=== PATIENT | female | born 1945 | race Caucasian/White ===

== ENCOUNTER → 2016-10-02 18:48 | Outpatient (CLI) | payer MEDICARE, OTHER ==
[2015-08-14 11:06] VITALS: BMI 37.8
[~2016-10-02 18:48] MED LIST: HYDROCHLOROTHIA25 MG PO; K-DUR20 MEQ PO; LISINOPRIL5 MG PO; TOPROL XL100 MG; TOPROL XL50 MG PO; XARELTO20 MG PO
[2016-10-02 19:21] LABS: T4 THYROXIN - FREE 1.01 ng/dL (0.76-1.46); T4 THYROXINE 6.2 ug/dL (4.7-13.3); THYROID STIMULATING HORMONE 1.17 uIU/mL (0.36-3.74)
== END | disposition home or self-care (01) ==
LOC: D.LABREF 18:48
PROVIDERS: Internal Medicine Cardiovascular Disease
DX: I48.91 Unspecified atrial fibrillation (principal)

== ENCOUNTER → 2018-10-24 13:58 | Outpatient (CLI) | payer MEDICARE, OTHER ==
[2015-08-14 11:06] VITALS: BMI 37.8
== END | disposition home or self-care (01) ==
LOC: D.RAD 13:58
PROVIDERS: ATTEND Family Medicine
DX: M25.551 Pain in right hip (principal); M25.561 Pain in right knee

== ENCOUNTER → 2018-11-23 12:46 | Outpatient (CLI) | payer MEDICARE, OTHER ==
[2015-08-14 11:06] VITALS: BMI 37.8
--- NOTE | ~2018-11-23 | HEMODYNAMI ---
PATIENT:ASIF CABRERA MEDICAL RECORD: [id number] : 41 LOCATION:SUDHIR ADMISSION DATE: 11/23/18 Generatedon:11/23/201813:35 Patient name: ASIF CABRERA Patient #: [id number] SSN: : 1945 Date of study: 11/23/2018 Page: Of Hemodynamic Procedure Report Patient Data Patient Demographics Procedure consent was obtained First Name: ASIF Gender: Female Last Name: RICK : 1945 Patient #: [id number] Age: 73 year(s) Race: Unknown Additional ID: [id number] Contact details Address: [address] [place] [address] State: [place] City: [place] Zip code: [address] Past Medical History Allergies: No known allergies Admission Admission Data Admission Date: 11/23/2018 Admission Time: 12:46 Procedure Procedure Types Cath Procedure Peripheral Cath Diagnostic Procedure Miscellaneous Aspiration/Injection (Joint) Procedure Description Procedure Date Procedure Date: 11/23/2018 Procedure Start Time: 13:27 Procedure Staff Name Function Paul Carbajal MD Performing Physician Naif Herbert RT Monitor Procedure Data Cath Procedure Fluoroscopy Diagnostic fluoroscopy Total fluoroscopy Time: 0.2 time: 0.2 min min Diagnostic fluoroscopy Total fluoroscopy dose: 4 dose: 4 mGy mGy Contrast Material Contrast Material Type Amount (ml) Isovue 300 5 Hemodynamics Rest Pre Cath Intra NCS Post Cath Procedure Log Time Note 13:22:59 Naif Herbert RT (R) (CV) sent for patient. Start room use. 13:23:13 Patient received from Outpatients to IR Alert and oriented. Tansferred to table in Supine position. 13:23:18 Signed procedure consent form obtained from patient. 13:23:20 Full Disclosure recording started 13:23:21 Pre-procedure instructions explained to patient. 13:23:22 Pre-op teaching completed and patient verbalized understanding. 13:23:35 Patient allergic to No known allergies 13:23:38 Is patient on blood thinner?No 13:24:00 Right Hip was prepped with betadine and draped in sterile fashion. 13:26:21 Physician arrived 13::21 --------ALL STOP TIME OUT------ 13::22 Final Timeout: patient, procedure, and site verified with staff and physician. All members of the team are in agreement. 13:26:25 Right groin site verified by team. 13:26:30 Sedation plan: Local Anesthetic Medication:Lidocaine 13:26:54 Procedure started. 13:27:00 Local anesthetic to right hip with Lidocaine 1% by Paul Carbajal MD.INITIAL ACCESS ONLY 13:27:18 SAFE-T PLUS MYELOGRAM TRAY opened to sterile field. 13:33:37 Procedure ended.(Physican Out) 13:34:11 Fluoroscopy time 00.20 minutes. 13:34:13 Fluoroscopy dose: 4 mGy 13:34:13 Flurop Dose total: 4 13:34:22 Contrast amount:Isovue 200m 5ml. 13:35:13 BANDAIDE APPLIED SITE STABLE PT SENT HOME Device Usage Item Name Manufacture Quantity Catalog Hospital Part Current Minimal Lot# / Number Charge Number Stock Stock Serial# Code SAFE-T Care[employer]usion 1 [id number] PLUS MYELOGRAM TRAY Signature Audit [place] Stage Time Signature Unsigned Intra-Procedure 11/23/2018 Naif 1:35:42 PM Keon RT (R) (CV) Signatures Monitor : Naif Signature : Keon RT Date : Time : [address] [address]
== END | disposition home or self-care (01) ==
LOC: D.OPS 12:46
PROVIDERS: ATTEND Nurse Practitioner Family
DX: M25.551 Pain in right hip (principal); Z01.812 Encounter for preprocedural laboratory examination

== ENCOUNTER → 2020-07-18 18:13 | Outpatient (CLI) | payer MEDICARE, OTHER ==
[2015-08-14 11:06] VITALS: BMI 37.8
== END | disposition home or self-care (01) ==
LOC: D.LABREF 18:13
PROVIDERS: ATTEND Orthopaedic Surgery
DX: M16.11 Unilateral primary osteoarthritis, right hip (principal)

== ENCOUNTER 2020-07-22 13:00 | Inpatient (IN) | payer MEDICARE, OTHER ==
[~2020-07-22] VITALS: Ht 160 cm; Wt 110.7 kg
[2020-08-20] MEDS ORDERED: POTASSIUM CHLO20 MEQ PO (11:02)
[2020-08-20] MEDS ORDERED: XARELTO20 MG PO (11:02)
[2020-08-20] MEDS ORDERED: METOPROLOL TART50 MG PO (11:02)
[2020-08-20] MEDS ORDERED: GABAPENTIN100 MG PO (11:03)
[2020-08-20] MEDS ORDERED: BAYER ASPIRIN325 MG PO (11:03)
[2020-08-20] MEDS ORDERED: ULTRAM50 MG PO (11:03)
[2020-08-21 13:37] LABS: BASOPHILS 0.3 % (0-2); EOSINOPHILS 0.2 % (0-7); HEMATOCRIT 41.6 % (36.0-48.0); HEMOGLOBIN 13.5 g/dL (12-16); IMMATURE GRANULOCYTES 0.3 % (0-5); LYMPHOCYTE ABS# 0.73 10x3/uL (1.18-3.74); LYMPHOCYTES 11.2 % (15-50); MCH 31.2 pg (26.0-34.0); MCHC 32.5 g/dL (31.0-37.0); MCV 96.1 fL (80.0-100.0); MEAN PLATELET VOLUME 11.5 fL (7.4-10.4); NEUTROPHIL ABS# 5.21 10x3/uL (1.56-6.13); PLATELET COUNT 166 10x3/uL (130-400); RBC 4.33 10x6/uL (4.00-5.40); RDW 14.2 % (11.5-14.5); WBC 6.5 10x3/uL (4.8-10.8)
[2020-08-21 13:45] LABS: ANION GAP 10.1 mmol/L (8-16); CALCIUM 9.3 mg/dL (8.5-10.1); CARBON DIOXIDE 29.7 mmol/L (21.0-32.0); CREATININE - SERUM 0.9 mg/dL (0.6-1.3); POTASSIUM - SERUM 4.8 mmol/L (3.5-5.1)
[2020-08-21 13:50] LABS: APTT 36.8 SECONDS (22.8-39.4); INR 1.69 (0.85-1.17); PROTIME 18.4 SECONDS (11.6-15.0)
[2020-08-23 11:01] LABS: BACTERIA RARE HPF (NONE SEEN); BILIRUBIN NEGATIVE (NEGATIVE); KETONE NEGATIVE (NEGATIVE); NITRITE NEGATIVE (NEGATIVE); SQUAMOUS EPITHELIAL 0-5 HPF (0-4); UROBILINOGEN 12 mg/dL (< 2); WHITE CELLS - URINE 0-5 HPF (0-4)
[2020-08-27] VITALS (13 sets, daily range): BP systolic 85–126; BP diastolic 43–73; BMI 42.6; BMI 43.3
--- NOTE | 2020-08-27 07:02 | NUR ---
CAUTERY PAD PLACED ON LEFT THIGH. PLASMA BLADE USED ON SETTING 6/8. AQUAMANTYS USED ON SETTING 170. CAUTERY PAD LOT# [id number] EXP. 12/31/2021
[2020-08-27 07:59] LABS: APTT 30.5 SECONDS (22.8-39.4); INR 1.23 (0.85-1.17); PROTIME 14.4 SECONDS (11.6-15.0)
--- NOTE | 2020-08-27 11:06 | NUR ---
PING BLOCK. PT DENIES PAIN AT THIS TIME
[2020-08-27 13:43] LABS: BASOPHILS 0 % (0-2); EOSINOPHILS 0 % (0-7); HEMOGLOBIN 12.3 g/dL (12-16); IMMATURE GRANULOCYTES 0.5 % (0-5); LYMPHOCYTE ABS# 0.65 10x3/uL (1.18-3.74); LYMPHOCYTES 7.1 % (15-50); MCH 31.5 pg (26.0-34.0); MCHC 33.2 g/dL (31.0-37.0); MCV 94.9 fL (80.0-100.0); MEAN PLATELET VOLUME 11.2 fL (7.4-10.4); MONOCYTES 3.3 % (2-11); NEUTROPHIL ABS# 8.15 10x3/uL (1.56-6.13); NEUTROPHILS 89.1 % (40-80); PLATELET COUNT 186 10x3/uL (130-400); RDW 13.7 % (11.5-14.5); WBC 9.2 10x3/uL (4.8-10.8)
[2020-08-27 13:59] LABS: ALBUMIN 3.3 g/dL (3.4-5.0); ANION GAP 12.8 mmol/L (8-16); BILIRUBIN - TOTAL 0.73 mg/dL (0.2-1.3); CALCIUM 8.6 mg/dL (8.5-10.1); CARBON DIOXIDE 26.6 mmol/L (21.0-32.0); POTASSIUM - SERUM 4.4 mmol/L (3.5-5.1); PROTEIN - SERUM 6.2 g/dL (6.4-8.2)
--- NOTE | 2020-08-27 16:01 | OP ---
PATIENT NAME: ASIF CABRERA MEDICAL RECORD: [id number] :41 LOCATION:D. D.1206 ADMISSION DATE:08/27/20 SURGEON: PAUL IBANEZ DO DATE OF OPERATION: 08/27/2020 PROCEDURE PERFORMED: Right total hip arthroplasty. PREOPERATIVE DIAGNOSIS: Right hip osteoarthritis. POSTOPERATIVE DIAGNOSIS: Right hip osteoarthritis. INDICATIONS: Ms. Lee is a 74-year-old female who has had right hip pain for years. It has gotten to the point where she could barely ambulate. She had a very severe osteoarthritis and was worrying the acetabulum and the femoral head was worn down almost complete on the superior aspect. I informed to her the risks of this including infection, damage to the femoral nerve, bleeding, need for blood transfusion, blood clots, fracture, failure of implants, need for further surgery, continued pain, loss of motion of the hip, blood clots and even and she signed the consent. SURGEON: Paul Ibanez DO DESCRIPTION OF PROCEDURE: The patient was taken to the operative suite, given the GURINDER block, sedated and intubated, laid in supine position, given 2 grams of Ancef, 80 mg of gentamicin, but no TXA due to her being on Xarelto. She was then moved to the [place] table position, the right hip was prepped and draped in sterile fashion. Timeout was performed, everyone was in agreeance with the e correct side, site, patient and procedure. I then began by marking out the incision as best I could as it was very hard to find landmarks due to her body habitus, I proceeded to prep and drape and time-out was performed. I marked out the incision and then cut down through the skin, made careful dissection down to the tensor fascia gerry muscle, took the fascia anteriorly and the muscle belly posteriorly, and then the rectus medially, opened up the rectus interval, took the rectus medially and the tensor fascia gerry laterally, coagulating any bleeders. The ascending branch of lateral femoral circumflex were coagulated with the Aquamantys. I then cut to the capsule, put Hohmann's around the capsule and opened up the capsule and tagged it and put Homans' intracapsularly. I then got an x-ray to make sure it cut proper place. I then made the neck cut and removed the head. The bone was very soft on the posterior femur, but I did get the head removed. I then put in the Charnley and coagulating any bleeding at that time, removed the labrum and pulvinar. I reamed up to a 52, impacted 52 osteotome and cup in. Due to a soft bone I did put a 25-mm screw in the posterior superior quadrant and put it impacting the liner. Once the liner was in a good position on the x-ray, I ensured that the cup was solid and it was with a hemostat. I then exposed the femur and then put in the canal finder and cookie cutter. I then broached up to a 13 and tried a 14, 14 was too big, 13 went in. I trialed the -6 neck, it fit very well and was equal length to the left on AP pelvis. I then removed that and irrigated thoroughly and then impacted a 13 stem and put in a -6 dual-mobility head. I then reduced it. We did x-rays in the femoral stem to make sure there were no fractures around it. We did not see any with internal and external, and then sized it and it was equal length to the left side on AP pelvis. I then irrigated with 10% povidone-iodine and 500 mL of normal saline solution, let it sit for few minutes, irrigated out with a liter of normal saline. I then put in Shakir and vancomycin-tobramycin powder. Then Tate Roman, certified surgical first aid nurse OPERATIVE REPORT [id number] ASIF CABRERA closed the tensor fascia gerry fascia with #1 Vicryl in a [id number] and then a running locking stitch and then on top of that right in the skin at the apex of the incision due to her body habitus, we put a Kerecis patch to help the wound heal there where her pannus would fold over on it. He then closed the skin with 2-0 Vicryl in inverted interrupted fashion, ran 4-0 Monocryl on the skin and put on a Prevena Plus. She was then awakened and taken to recovery in stable condition. Blood loss was approximately 300 mL. COMPLICATIONS: None. TRANSINT:[id number] Voice Confirmation ID: [id number] DOCUMENT ID: [id number] PAUL IBANEZ DO at 1601 CC: [id number] DICTATION DATE: 08/27/20 1046 BLUE LEATHER SORTER: 08/27/20 1501 ADM IN [facility] [address] [place] [id number]
--- NOTE | 2020-08-27 18:37 | MORECARE ---
CASE MANAGEMENT DISCHARGE SUMMARY PATIENT: ASIF CABRERA UNIT: [id number] ADM DATE: 08/27/20 AGE: 74 : 43 SEX: F ROOM/BED: D.1206 AUTHOR: JENIFER HARDING PHYSICIAN: REFERRING PHYSICIAN: BRUCE IBANEZ DO DATE OF SERVICE: 08/27/20 Case Management Discharge Planning Summary COMMENTS ENTERED DATE: 08/27/20 18:35 CT COMMENT TYPE: Discharge Planning REVIEWER: Dominguez Ordoñez CM met with patient to complete DC plan and to evaluate needs. Patient lives alone with strong support. Patient identified her son, Héctor Lee, , as person to notify. Patient stated that her home is safe and has electricity and running water. Patient stated that the home has 6 steps to enter and she is able to manage the steps but with difficulty. Patient further stated that her home has multiple levels and she is concerned for her safety going up and down stairs in her home. Patient stated that she has no problems paying for medications and she fills her medications at [facility]. Patient stated that her primary care physician is Dr. Lazar. CM discussed availability of home health, rehab services, and medical equipment. Patient declined HHS, SNF, and DME. Patient would like Inpatient rehab services with [facility]. Patient reiterated that she would feel safer in inpatient rehab for a week or two before going home. Patient stated that she would like to speak with Dr. Ibanez regarding best plan. Patient stated that she may be able to get help at home but would like to strengthen in inpatient rehab before going home. LEONILA signed and placed in chart. Patient stated she has a walker at home. Patient voiced no other needs at this time and is satisfied with DC plan. DC IMM delivered, explained, signed by the patient, and placed in chart. Signed form also left with the patient. CM will continue to follow and will assist as needed with dc plans/needs. DCP REVIEW SUMMARY ANTICIPATED D/C DATE: EXPECTED LOS : CASE STATUS: DCP Initiated INITIAL REVIEW: 08/27/2020 INITIAL REVIEWER: Dominguez Ordoñez FINAL DISCHARGE DISPOSITION: : FINAL REVIEWER: FINAL REVIEW DATE: DCP Focus Questions & Answers DCP Evaluation QUESTION: ANSWER Patient gives permission to discuss discharge plans with: (name, relationship and number) : sonHéctor, Patient's ability to cope with chronic illness : d. No chronic illness Patient's current cognitive status: : *Oriented to person, place, situation, time and present Family / Caregiver's ability to cope with chronic illness: : a. Adequate (ability to meet patient's medical needs, ensures patient attends medical appts.) Patient and/or caregiver agree upon recommended discharge plan? : Yes Physical Status: : Independent with ADL's Family / Caregiver's ability to cope with chronic illness: : a. Adequate (ability to meet patient's medical needs, ensures patient attends medical appts.) Functional screen assessment: : Basic needs can adequately be met by self Does the patient have the ability to pay for or attain post discharge needs / services? : Yes Living Arrangements: : Home Alone with Support Is there a likelihood that the patient will require additional services to return to the preadmission environment? : Yes Equipment needed for post hospitalization: : None Baseline cognitive status: : *Oriented to person, place, situation, time and present Patient with capacity for self-care or can be cared for in same environment as prior to hospitalization? : Yes Physical environment modification needed / anticipated for discharge: : No Medication Management: : Patient states can afford medications Medication Management: : Patient states can read and understand medication labels [facility] Does Patient have transportation to get home and to follow-up medical appointments when discharged from the hospital? : Yes Would patient like to participate in any Care Coordination programs (if applicable): : Not applicable Does the patient have electricity at home? : Yes Does the patient have running water in their house? : Yes Equipment in use: : Walker - Rolling Mental health screen: : No mental health history DCP Re-evaluation QUESTION: ANSWER Would patient like to participate in any Care Coordination programs (if applicable): : Not applicable PATIENT: ASIF CABRERA ENCOUNTER: [id number] MEDICAL RECORD#: [id number] ADMISSION DATE: 08/27/2020 DISCHARGE DATE: ATTENDING MD: BRUCE ARANDA : AGE: 74 MARITAL STATUS: W DC PLAN ID: [id number] FACILITY: [facility] PRINTED ON: 08/27/20 18:37 CT All edits/amendments must be made on the electronic document DICTATION DATE: 08/27/201836 GROUND CONTROL APPROACH TECHNICIAN: MELODY 08/27/201836 RPT#: [id number] DC DATE: STATUS: ADM IN [facility] [address] [place] [address] END OF REPORT
--- NOTE | 2020-08-27 20:00 | NUR ---
ALERT SITTING UP IN BED, DENIES PAIN OR NEEDS AT THIS TIME, SEE SHIFT ASSESSMENT, CALL LIGHT IN REACH
[2020-08-28] VITALS: BP 96/60
[2020-08-28 05:43] LABS: BASOPHILS 0 % (0-2); EOSINOPHILS 0 % (0-7); HEMATOCRIT 32.8 % (36.0-48.0); HEMOGLOBIN 10.8 g/dL (12-16); IMMATURE GRANULOCYTES 0.3 % (0-5); LYMPHOCYTES 11.4 % (15-50); MCH 30.9 pg (26.0-34.0); MCHC 32.9 g/dL (31.0-37.0); MEAN PLATELET VOLUME 11.5 fL (7.4-10.4); MONOCYTES 11.1 % (2-11); NEUTROPHIL ABS# 7.43 10x3/uL (1.56-6.13); NEUTROPHILS 77.2 % (40-80); PLATELET COUNT 203 10x3/uL (130-400); RBC 3.49 10x6/uL (4.00-5.40); RDW 13.7 % (11.5-14.5); WBC 9.6 10x3/uL (4.8-10.8)
[2020-08-28 05:53] LABS: ALBUMIN 2.8 g/dL (3.4-5.0); ANION GAP 10.1 mmol/L (8-16); BILIRUBIN - TOTAL 0.53 mg/dL (0.2-1.3); CALCIUM 8.6 mg/dL (8.5-10.1); CARBON DIOXIDE 27.5 mmol/L (21.0-32.0); CREATININE - SERUM 0.8 mg/dL (0.6-1.3); POTASSIUM - SERUM 4.6 mmol/L (3.5-5.1); PROTEIN - SERUM 5.8 g/dL (6.4-8.2)
--- NOTE | 2020-08-28 08:45 | NUR ---
PT SITTING UP IN BED WATCHING TV. RESP EVEN AND UNLABORED. DENIES PAIN AT THIS TIME. SALINE LOC TO LEFT HAND, SITE WITHOUT REDNESS OR EDEMA. PREVENA DRESSING TO RIGHT HIP. PT DENIES FURTHER NEEDS AT THIS TIME. AM MEDICATIONS ADMINISTERED AT THIS TIME. TOPROL XL HELD THIS AM PER PT REQUEST DUE TO BP OF 122/50. CL WITHIN REACH. ENCOURAGED TO CALL WITH NEEDS. CONTINUE POC
[2020-08-28 09:40] VITALS: BP 122/50
[2020-08-28 12:00] VITALS: BP 103/53
[2020-08-28 15:03] VITALS: Ht 160 cm; Wt 110.7 kg
[2020-08-28 20:00] VITALS: BP 115/61
--- NOTE | 2020-08-28 20:00 | NUR ---
ALERT RESTING IN BED, DENIES PAIN OR NEEDS AT THIS TIME, SEE SHIFT ASSESSMENT, CALL LIGHT IN REACH
[2020-08-29 05:00] VITALS: BP 102/52
[2020-08-29 07:24] VITALS: BP 142/95
[2020-08-29 07:36] LABS: BASOPHILS 0.1 % (0-2); EOSINOPHILS 0.1 % (0-7); HEMATOCRIT 33.6 % (36.0-48.0); HEMOGLOBIN 10.9 g/dL (12-16); IMMATURE GRANULOCYTES 0.7 % (0-5); LYMPHOCYTE ABS# 1.05 10x3/uL (1.18-3.74); LYMPHOCYTES 13.9 % (15-50); MCH 30.9 pg (26.0-34.0); MCHC 32.4 g/dL (31.0-37.0); MCV 95.2 fL (80.0-100.0); MEAN PLATELET VOLUME 11.4 fL (7.4-10.4); MONOCYTES 15.7 % (2-11); NEUTROPHIL ABS# 5.25 10x3/uL (1.56-6.13); NEUTROPHILS 69.5 % (40-80); PLATELET COUNT 201 10x3/uL (130-400); RBC 3.53 10x6/uL (4.00-5.40); RDW 13.9 % (11.5-14.5); WBC 7.6 10x3/uL (4.8-10.8)
[2020-08-29] MEDS ORDERED: HYDROCODON-ACE1 EA10 PO (07:47)
[2020-08-29 08:00] LABS: ALBUMIN 2.9 g/dL (3.4-5.0); ANION GAP 13.6 mmol/L (8-16); CALCIUM 8.8 mg/dL (8.5-10.1); CARBON DIOXIDE 26.9 mmol/L (21.0-32.0); CREATININE - SERUM 0.8 mg/dL (0.6-1.3); POTASSIUM - SERUM 4.5 mmol/L (3.5-5.1); PROTEIN - SERUM 5.9 g/dL (6.4-8.2)
--- NOTE | 2020-08-29 08:01 | NUR ---
PT AWAKE ALERT AND ORIENTED. SCD'S, JEREMIAH'S, AND NON SKID SOCKS ON. STATES THERE IS SOMETHING PINCHING HER RIGHT LOWER LEG/ANKLE/FOOT. IT WAS FOUND TO BE A TEMPORARY PULSE OX THAT I REMOVED. WITH REARRANGING OF JEREMIAH HOSE. SHE STATED IT WAS BETTER AND NOTHING PINCHING NOW. NO FURTHER NEEDS AT THIS TIME. VS STABLE. CL IN REACH. WCTM
[2020-08-29 10:58] VITALS: BP 100/51
--- NOTE | 2020-08-29 11:45 | NUR ---
FAMILY IN ROOM. NO NEEDS AT THIS TIME. CL IN REACH. PT IN CHAIR. WCTM
--- NOTE | 2020-08-29 14:29 | MORECARE ---
CASE MANAGEMENT DISCHARGE SUMMARY PATIENT: ASIF CABRERA UNIT: [id number] ADM DATE: 08/27/20 AGE: 74 : 43 SEX: F ROOM/BED: D.1206 AUTHOR: JENIFER HARDING PHYSICIAN: REFERRING PHYSICIAN: BRUCE IBANEZ DO DATE OF SERVICE: 08/29/20 Case Management Discharge Planning Summary COMMENTS ENTERED DATE: 08/27/20 18:35 CT COMMENT TYPE: Discharge Planning REVIEWER: Dominguez Ordoñez CM met with patient to complete DC plan and to evaluate needs. Patient lives alone with strong support. Patient identified her son, Héctor Lee, , as person to notify. Patient stated that her home is safe and has electricity and running water. Patient stated that the home has 6 steps to enter and she is able to manage the steps but with difficulty. Patient further stated that her home has multiple levels and she is concerned for her safety going up and down stairs in her home. Patient stated that she has no problems paying for medications and she fills her medications at [facility]. Patient stated that her primary care physician is Dr. Lazar. CM discussed availability of home health, rehab services, and medical equipment. Patient declined HHS, SNF, and DME. Patient would like Inpatient rehab services with [facility]. Patient reiterated that she would feel safer in inpatient rehab for a week or two before going home. Patient stated that she would like to speak with Dr. Ibanez regarding best plan. Patient stated that she may be able to get help at home but would like to strengthen in inpatient rehab before going home. LEONILA signed and placed in chart. Patient stated she has a walker at home. Patient voiced no other needs at this time and is satisfied with DC plan. DC IMM delivered, explained, signed by the patient, and placed in chart. Signed form also left with the patient. CM will continue to follow and will assist as needed with dc plans/needs. DCP REVIEW SUMMARY ANTICIPATED D/C DATE: EXPECTED LOS : CASE STATUS: DCP Initiated INITIAL REVIEW: 08/27/2020 INITIAL REVIEWER: Dominguez Ordoñez FINAL DISCHARGE DISPOSITION: : FINAL REVIEWER: FINAL REVIEW DATE: DCP Focus Questions & Answers DCP Evaluation QUESTION: ANSWER Patient gives permission to discuss discharge plans with: (name, relationship and number) : sonHéctor, Patient's ability to cope with chronic illness : d. No chronic illness Patient's current cognitive status: : *Oriented to person, place, situation, time and present Family / Caregiver's ability to cope with chronic illness: : a. Adequate (ability to meet patient's medical needs, ensures patient attends medical appts.) Patient and/or caregiver agree upon recommended discharge plan? : Yes Physical Status: : Independent with ADL's Family / Caregiver's ability to cope with chronic illness: : a. Adequate (ability to meet patient's medical needs, ensures patient attends medical appts.) Functional screen assessment: : Basic needs can adequately be met by self Does the patient have the ability to pay for or attain post discharge needs / services? : Yes Living Arrangements: : Home Alone with Support Is there a likelihood that the patient will require additional services to return to the preadmission environment? : Yes Equipment needed for post hospitalization: : None Baseline cognitive status: : *Oriented to person, place, situation, time and present Patient with capacity for self-care or can be cared for in same environment as prior to hospitalization? : Yes Physical environment modification needed / anticipated for discharge: : No Medication Management: : Patient states can afford medications Medication Management: : Patient states can read and understand medication labels [facility] Does Patient have transportation to get home and to follow-up medical appointments when discharged from the hospital? : Yes Would patient like to participate in any Care Coordination programs (if applicable): : Not applicable Does the patient have electricity at home? : Yes Does the patient have running water in their house? : Yes Equipment in use: : Walker - Rolling Mental health screen: : No mental health history DCP Re-evaluation QUESTION: ANSWER Would patient like to participate in any Care Coordination programs (if applicable): : Not applicable PATIENT: ASIF CABRERA ENCOUNTER: [id number] MEDICAL RECORD#: [id number] ADMISSION DATE: 08/27/2020 DISCHARGE DATE: ATTENDING MD: BRUCE ARANDA : AGE: 74 MARITAL STATUS: W DC PLAN ID: [id number] FACILITY: [facility] PRINTED ON: 08/29/20 14:29 CT All edits/amendments must be made on the electronic document DICTATION DATE: 08/29/201428 ELECTRONIC CALIBRATION TECHNICIAN: MELODY 08/29/201428 RPT#: [id number] DC DATE: STATUS: ADM IN [facility] [address] [place] [address] END OF REPORT
--- NOTE | 2020-08-29 17:21 | NUR ---
IV THERAPY REMOVED FROM LEFT HAND WITH TIP INTACT. DISCHARGE INSTRUCTIONS SIGNED. PT PACKED UP AND TAKEN TO REHAB. REPORT CALLED TO MAURISIO MEJIA
--- NOTE | 2020-08-30 09:34 | MORECARE ---
CASE MANAGEMENT DISCHARGE SUMMARY PATIENT: ASIF CABRERA UNIT: [id number] ADM DATE: 08/27/20 AGE: 74 : 43 SEX: F ROOM/BED: D.1206 AUTHOR: MEAGHAN,JENIFER PHYSICIAN: REFERRING PHYSICIAN: BRUCE IBANEZ DO DATE OF SERVICE: 08/30/20 Case Management Discharge Planning Summary COMMENTS ENTERED DATE: 08/27/20 18:35 CT COMMENT TYPE: Discharge Planning REVIEWER: Dominguez Ordoñez CM met with patient to complete DC plan and to evaluate needs. Patient lives alone with strong support. Patient identified her son, Héctor Lee, , as person to notify. Patient stated that her home is safe and has electricity and running water. Patient stated that the home has 6 steps to enter and she is able to manage the steps but with difficulty. Patient further stated that her home has multiple levels and she is concerned for her safety going up and down stairs in her home. Patient stated that she has no problems paying for medications and she fills her medications at [facility]. Patient stated that her primary care physician is Dr. Lazar. CM discussed availability of home health, rehab services, and medical equipment. Patient declined HHS, SNF, and DME. Patient would like Inpatient rehab services with [facility]. Patient reiterated that she would feel safer in inpatient rehab for a week or two before going home. Patient stated that she would like to speak with Dr. Ibanez regarding best plan. Patient stated that she may be able to get help at home but would like to strengthen in inpatient rehab before going home. LEONILA signed and placed in chart. Patient stated she has a walker at home. Patient voiced no other needs at this time and is satisfied with DC plan. DC IMM delivered, explained, signed by the patient, and placed in chart. Signed form also left with the patient. CM will continue to follow and will assist as needed with dc plans/needs. DCP REVIEW SUMMARY ANTICIPATED D/C DATE: EXPECTED LOS : CASE STATUS: DCP Initiated INITIAL REVIEW: 08/27/2020 INITIAL REVIEWER: Dominguez Ordoñez FINAL DISCHARGE DISPOSITION: : FINAL REVIEWER: FINAL REVIEW DATE: DCP Focus Questions & Answers DCP Evaluation QUESTION: ANSWER Patient and/or caregiver agree upon recommended discharge plan? : Yes Family / Caregiver's ability to cope with chronic illness: : a. Adequate (ability to meet patient's medical needs, ensures patient attends medical appts.) Patient's current cognitive status: : *Oriented to person, place, situation, time and present Patient's ability to cope with chronic illness : d. No chronic illness Patient gives permission to discuss discharge plans with: (name, relationship and number) : sonHéctor, Does the patient have the ability to pay for or attain post discharge needs / services? : Yes Functional screen assessment: : Basic needs can adequately be met by self Family / Caregiver's ability to cope with chronic illness: : a. Adequate (ability to meet patient's medical needs, ensures patient attends medical appts.) Physical Status: : Independent with ADL's Equipment needed for post hospitalization: : None Is there a likelihood that the patient will require additional services to return to the preadmission environment? : Yes Living Arrangements: : Home Alone with Support Patient with capacity for self-care or can be cared for in same environment as prior to hospitalization? : Yes Baseline cognitive status: : *Oriented to person, place, situation, time and present Physical environment modification needed / anticipated for discharge: : No Medication Management: : Patient states can read and understand medication labels Medication Management: : Patient states can afford medications [facility] Does Patient have transportation to get home and to follow-up medical appointments when discharged from the hospital? : Yes Would patient like to participate in any Care Coordination programs (if applicable): : Not applicable Does the patient have electricity at home? : Yes Does the patient have running water in their house? : Yes Equipment in use: : Walker - Rolling Mental health screen: : No mental health history DCP Re-evaluation QUESTION: ANSWER Would patient like to participate in any Care Coordination programs (if applicable): : Not applicable PATIENT: ASIF CABRERA ENCOUNTER: [id number] MEDICAL RECORD#: [id number] ADMISSION DATE: 08/27/2020 DISCHARGE DATE: 08/29/2020 ATTENDING MD: BRUCE ARANDA : [id number] AGE: 74 MARITAL STATUS: W DC PLAN ID: [id number] FACILITY: [facility] PRINTED ON: 08/30/20 9:34 CT All edits/amendments must be made on the electronic document DICTATION DATE: 08/30/20933 COAL SAMPLE TESTER: MELODY 08/30/20933 RPT#: [id number] DC DATE:08/29/20 STATUS: DIS IN [facility] [address] [place] [address] END OF REPORT
== END 2020-08-29 17:22 | DRG 470 ==
LOC: D.M3 08-27 06:01 → D.SDCHOLD 08-27 06:01 → D.M3 08-27 11:26
PROVIDERS: Anesthesiology; Family Medicine; ADMIT Orthopaedic Surgery; ATTEND Orthopaedic Surgery
PROC: 0SR90J9 Replacement of Right Hip Joint with Synthetic Substitute, Cemented, Open Approach (ICD-10-PCS; principal; 2020-08-27 08:00)
DX: M16.11 Unilateral primary osteoarthritis, right hip (principal); E87.1 Hypo-osmolality and hyponatremia; I10 Essential (primary) hypertension; I48.91 Unspecified atrial fibrillation; J42 Unspecified chronic bronchitis

== ENCOUNTER 2020-08-29 12:21 | Inpatient (IN) | payer MEDICARE, OTHER ==
[~2020-08-29] VITALS: Ht 160 cm; Wt 113.9 kg
[~2020-08-29 12:21] MED LIST changes: +BAYER ASPIRIN325 MG PO; +GABAPENTIN100 MG PO; +HYDROCODON-ACE1 EA10 PO; +METOPROLOL TART50 MG PO; +POTASSIUM CHLO20 MEQ PO; +ULTRAM50 MG PO
[2020-08-29 19:30] VITALS: BP 118/58
--- NOTE | 2020-08-30 02:31 | NUR ---
PT IS RESTING WITH EYES CLOSED. RESPIRATIONS EVEN AND UNLABORED. HER BED IS LOW, BED ALARM ON AND CALL LIGHT IS WITHIN REACH.
[2020-08-30 07:48] VITALS: BP 106/51
[2020-08-30 08:06] LABS: BASOPHILS 0.2 % (0-2); EOSINOPHILS 0.5 % (0-7); HEMATOCRIT 32.8 % (36.0-48.0); HEMOGLOBIN 10.7 g/dL (12-16); IMMATURE GRANULOCYTES 1.2 % (0-5); LYMPHOCYTE ABS# 1.21 10x3/uL (1.18-3.74); LYMPHOCYTES 14.8 % (15-50); MCH 30.9 pg (26.0-34.0); MCHC 32.6 g/dL (31.0-37.0); MCV 94.8 fL (80.0-100.0); MEAN PLATELET VOLUME 11.3 fL (7.4-10.4); MONOCYTES 14.3 % (2-11); NEUTROPHIL ABS# 5.65 10x3/uL (1.56-6.13); PLATELET COUNT 214 10x3/uL (130-400); RBC 3.46 10x6/uL (4.00-5.40); RDW 13.7 % (11.5-14.5); WBC 8.2 10x3/uL (4.8-10.8)
--- NOTE | 2020-08-30 08:08 | NUR ---
SHE IS WEARING HER JEREMIAH HOSE AND THE SCD'S. SHE HAS A WOUND VAC TO THE RIGHT HIP/GROIN AREA. PRN GIVEN FOR PAIN. THE CALL LIGHT IS WITHIN REACH AND THE BED ALARM IS ON.
[2020-08-30 08:31] LABS: CALC OSMOLALITY 263 mosm/kg (275-300); CALCIUM 8.2 mg/dL (8.5-10.1); CARBON DIOXIDE 26.6 mmol/L (21.0-32.0); CHLORIDE - SERUM 98 mmol/L (98-107); CREATININE - SERUM 0.6 mg/dL (0.6-1.3); GLUCOSE 104 mg/dL (74-106); POTASSIUM - SERUM 4.2 mmol/L (3.5-5.1); SODIUM 132 mmol/L (136-145); UREA NITROGEN 10 mg/dL (7-18); eGFR NON AFRICAN AMERICAN > 90 mL/min (90-120)
[2020-08-30 12:15] VITALS: Ht 160 cm; Wt 113.9 kg
--- NOTE | 2020-08-30 14:48 | NUR ---
PATIENT ADMITTS TO [facility] FOR REHABILITATION FROM ACUTE FLOOR. HER PCP IS DR. ZAMORA. DME AT HOME IS A ROLLING WALKER. DISCHARGE PLANS ARE FOR HER TO RETURN HOME. WILL CONTINUE TO FOLLOW WITH PATIENT AND WILL ASSIST WITH HER NEEDS.
[2020-08-30 19:34] VITALS: BP 107/55
--- NOTE | 2020-08-30 19:57 | NUR ---
PATIENT RECEIVED SITTING UP IN BED. ASSESSMENT & VITAL SIGNS DONE. NO C/O PAIN OR DISTRESS. BESIDE TABLE & CALL LIGHT WITHIN REACH. ALARM ON. CALL LIGHT WITHIN REACH. WILL CONTINUE TO MONITOR.
--- NOTE | 2020-08-31 01:12 | NUR ---
I have reviewed this patient and I concur with the Shift Assessment completed by the Licensed Practical Nurse today this shift.
--- NOTE | 2020-08-31 04:25 | NUR ---
PATIENT EYES CLOSED. RESPIRATIONS 18 & EVEN. WOUND VAC CONTINUES. BED LOW. ALARM ON. CALL LIGHT & BEDSIDE TABLE WITHIN REACH. WILL CONTINUE TO MONITOR.
[2020-08-31 07:00] VITALS: BP 106/73
--- NOTE | 2020-08-31 08:15 | NUR ---
SHE IS USING THE WALKER TO GET TO THE BATHROOM. SHE HAS THE WOUND VAC TO THE RIGHT HIP, IT HAS BRUISING. PRN FOR PAIN GIVEN. THE CALL LIGHT IS WITHIN REACH.
[2020-08-31 19:10] VITALS: BP 116/57
--- NOTE | 2020-08-31 19:37 | NUR ---
PATIENT RECEIVED SITTING UP IN BED. ASSESSMENT & VITAL SIGNS DONE. NO C/O PAIN OR DISTRESS. BED LOW. ALARM ON. CALL LIGHT WITHIN REACH. WILL CONTINUE TO MONITOR.
--- NOTE | 2020-09-01 00:58 | NUR ---
I have reviewed this patient and I concur with the Shift Assessment completed by the Licensed Practical Nurse today this shift.
[2020-09-01 08:00] VITALS: BP 116/61
[2020-09-01 19:00] VITALS: BP 127/72
--- NOTE | 2020-09-01 20:00 | NUR ---
PATIENT RECEIVED SITTING UP IN LOW BED. ASSESSMENT & VITAL SIGNS DONE. NO C/O PAIN OR DISTRESS. ALARM ON. CALL LIGHT WITHIN REACH. WILL CONTINUE TO MONITOR,
--- NOTE | 2020-09-02 04:05 | NUR ---
PATIENT AWAKE WATCHING TV. ASKED PATIENT IF SHE NEEDED ANYTHING. PATIENT SAID NO I'M OK. BED LOW. ALARM ON. CALL LIGHT WITHIN REACH. WILL CONTINUE TO MONITOR.
--- NOTE | 2020-09-02 08:00 | NUR ---
PT RESTING IN BED WITH EYES OPEN CALL LIGHT IN REACH WILL MONITER
[2020-09-02 08:30] VITALS: BP 102/56
[2020-09-02 09:26] LABS: BASOPHILS 0.3 % (0-2); EOSINOPHILS 1.1 % (0-7); HEMATOCRIT 30.8 % (36.0-48.0); HEMOGLOBIN 10.2 g/dL (12-16); IMMATURE GRANULOCYTES 1.5 % (0-5); LYMPHOCYTE ABS# 0.95 10x3/uL (1.18-3.74); LYMPHOCYTES 14.6 % (15-50); MCHC 33.1 g/dL (31.0-37.0); MCV 93.6 fL (80.0-100.0); MEAN PLATELET VOLUME 10.9 fL (7.4-10.4); MONOCYTES 12.2 % (2-11); NEUTROPHIL ABS# 4.56 10x3/uL (1.56-6.13); NEUTROPHILS 70.3 % (40-80); RBC 3.29 10x6/uL (4.00-5.40); RDW 13.3 % (11.5-14.5); WBC 6.5 10x3/uL (4.8-10.8)
[2020-09-02 09:28] LABS: PLATELET COUNT 282 10x3/uL (130-400)
[2020-09-02 09:39] LABS: ANION GAP 11.9 mmol/L (8-16); CALCIUM 8.6 mg/dL (8.5-10.1); CARBON DIOXIDE 27.2 mmol/L (21.0-32.0); CREATININE - SERUM 0.8 mg/dL (0.6-1.3); POTASSIUM - SERUM 4.1 mmol/L (3.5-5.1)
--- NOTE | 2020-09-02 18:35 | NUR ---
PT RESTING IN BED WITH EYES OPEN CALL LIGHT IN REACH WILL MONITER
[2020-09-02 21:25] VITALS: BP 128/69
[2020-09-03 07:46] VITALS: BP 120/53
--- NOTE | 2020-09-03 08:00 | NUR ---
PT RESTING IN BED WITH EYES OPEN CALL LIGHT IN REACH WILL MONITER
--- NOTE | 2020-09-03 18:08 | NUR ---
PT RESTING IN BED WITH EYES OPEN CALL LIGHT IN REACH NO PROBLEMS WILL MONITER
--- NOTE | 2020-09-03 19:32 | NUR ---
PT IN BED, NO IMMEDIATE NEEDS NOTED OR VERBALIZED, FLUIDS/CL WITHIN REACH, ALARMS ON AND WORKING, MAJOR ACCOUNT REPRESENTATIVE IN ROOM TAKING VITALS
[2020-09-03 20:28] VITALS: BP 119/62
--- NOTE | 2020-09-03 20:28 | RHP ---
PATIENT: ASIF CABRERA MEDICAL RECORD: [id number] ACCOUNT: [id number] LOCATION:[facility] D.[id number] : 43 ADMISSION DATE: 08/29/20 REHABILITATION HISTORY AND PHYSICAL EXAMINATION POST ADMISSION PHYSICIAN EXAMINATION ADMITTING DIAGNOSIS: Right hip osteoarthritis. HISTORY OF PRESENT ILLNESS: The patient is admitted to inpatient rehab with right hip osteoarthritis, status post right total hip arthroplasty. She is a 74-year-old female patient who had pain for years in this hip, it had gotten to the point where she could not ambulate. She had severe osteoarthritis and was worrying that the acetabulum and femoral head were worn down against her pelvis so bad that she might have to have other surgery done. She came to the hospital for right hip arthroplasty. She did well with this. The patient postop had some anemia. She is being monitored for cardiac arrhythmias and is on Toprol for atrial fib. The patient has been having physical therapy. She is supine to sit, is mod assist from the edge of the bed. She is min assist for walking up to 130 feet with a rolling walker. The patient is having some problems with steadying and assistive device. The patient needs to have cues to slow down control of breathing, she requires standing rest breaks to complete activity prior to this. She lives at home alone. She lives in a multi-story home. She has 6 steps to enter her home and 13 steps to get to her second floor. The patient has been admitted to the rehabilitation. We will monitor closely for pain control, decreased activity tolerance, decreased strength, balance deficit, decreased range of motion, gait disturbance, impaired mobility, high fall risk and self-care deficits. These are all barriers to her discharge home. Hopefully, we will get her back to her prior level of functioning. COMORBIDITIES: Include atrial fib, anemia, arthritis, cataracts, chronic AFib, decrease in physical function, difficulty walking, electrolyte imbalance, low albumin, low sodium, hypotension, morbid obesity, osteoarthritis, need for safety cues. PAST MEDICAL HISTORY: Significant for cataracts, hypertension, atrial fib, chronic bronchitis, arthritis. She is postmenopausal. She has got neuropathy. PAST SURGICAL HISTORY: Includes cataract surgery and bilateral knee replacement. ALLERGIES: No known drug allergies. CURRENT MEDICATIONS: Include Xarelto 20 mg with dinner, potassium 20 mEq daily, metoprolol 50 mg daily, hydrocodone 10/325 one tab every 4 to 6 hours p.r.n., Neurontin 100 mg b.i.d., aspirin 325 and polyethylene glycol 17 grams in 8 ounces of water daily. HABITS: No current alcohol or tobacco use. FAMILY HISTORY: Noncontributory. SOCIAL HISTORY: The patient hopes to return back home and get back to her prior level of functioning. REVIEW OF SYSTEMS: HISTORY AND PHYSICAL [id number] ASIF CABRERA GENERAL: Does complain of weakness and fatigue. HEENT: Denies cold, cough or congestion. CARDIOVASCULAR: Denies any chest pain. OBJECTIVE: VITAL SIGNS: Stable. GENERAL: A morbidly obese female in no acute distress upon exam. HEENT: Normocephalic and atraumatic. Mucosa moist. NECK: Supple. No lymphadenopathy. LUNGS: Clear in upper damon. No wheezing or rales. HEART: Regular rate and rhythm. ABDOMEN: Soft, benign, nondistended. She is noted to be obese. EXTREMITIES: Postoperative area looks pretty good. NEUROLOGIC: She does have a little bit of weakness. LABORATORY DATA: White count is 8.2, H&H of 10.7 and 32.8, platelet count is 214. Sodium 132, potassium 4.2, BUN and creatinine of 10 and 0.6 and blood sugar is noted to be 104. ASSESSMENT: This is a 74-year-old female patient admitted to rehab with a working diagnosis of severe right hip osteoarthritis status post total hip arthroplasty. The patient has potential to make improvement. We instituted the following multidisciplinary therapies include, but not limited to physical, occupational, respiratory, speech, nutritional services, prosthetics and orthotics. Given her complex medical condition and risk of further medical complications, rehabilitation services cannot be provided at a low level of care such as half-way facility. PLAN: 1. Admit to [facility] for inpatient therapy to include the following disciplines; A. Physical therapy to improve gait, all transfer skills and bed mobility to a modified independent level. B. Occupational therapy to improve activities of daily living. C. Case management to help with discharge planning and placement options. D. Nutrition to assist with nutritional needs. E. Rehabilitation nursing to assist in monitoring the patient's underlying medical condition and to assist with any type of bowel or bladder management. 2. The patient's current medications and Medicare will be continued. 3. Placed on standard fall precautions. 4. The patient's estimated length of stay is approximately 7 to 10 days. 5. We will discuss this patient during care team staff meeting this week. TRANSINT:[id number] Voice Confirmation ID: [id number] DOCUMENT ID: [id number] MILLA notes whether there has been none or any medical/functional change since admission: - MILLA attests patient continues to be appropriate for IRF: - HISTORY AND PHYSICAL [id number] ASIF CABRERA,DINA PACKER MD at 2028 CC: [id number] DICTATION DATE: 08/30/20 09 COMPUTER TYPESETTER KEYLINER: 08/30/20 1035 ADM IN [facility] [address] [place] [address]
[2020-09-04 07:38] VITALS: BP 115/50
[2020-09-04 08:01] LABS: BASOPHILS 0.4 % (0-2); EOSINOPHILS 0.5 % (0-7); HEMATOCRIT 30.4 % (36.0-48.0); IMMATURE GRANULOCYTES 1.1 % (0-5); LYMPHOCYTE ABS# 0.89 10x3/uL (1.18-3.74); LYMPHOCYTES 15.8 % (15-50); MCH 31.1 pg (26.0-34.0); MCHC 32.9 g/dL (31.0-37.0); MCV 94.4 fL (80.0-100.0); MEAN PLATELET VOLUME 10.7 fL (7.4-10.4); MONOCYTES 14.6 % (2-11); NEUTROPHILS 67.6 % (40-80); PLATELET COUNT 320 10x3/uL (130-400); RBC 3.22 10x6/uL (4.00-5.40); RDW 13.5 % (11.5-14.5); WBC 5.6 10x3/uL (4.8-10.8)
[2020-09-04 08:23] LABS: CALC OSMOLALITY 264 mosm/kg (275-300); CALCIUM 8.7 mg/dL (8.5-10.1); CARBON DIOXIDE 26.9 mmol/L (21.0-32.0); CHLORIDE - SERUM 98 mmol/L (98-107); CREATININE - SERUM 0.6 mg/dL (0.6-1.3); GLUCOSE 101 mg/dL (74-106); POTASSIUM - SERUM 4.3 mmol/L (3.5-5.1); SODIUM 133 mmol/L (136-145); UREA NITROGEN 11 mg/dL (7-18); eGFR NON AFRICAN AMERICAN > 90 mL/min (90-120)
--- NOTE | 2020-09-04 13:59 | NUR ---
Nutrition Re-Assessment Diet: Regular PO intake: 100% Last BM: 09/02/20 Wt: 251# (08/30/20) Meds noted: k-dur Labs reviewed Estimated nutrition needs: 9824-8140 gabino (25-30 Adj), 75-88gms protein (1.1-1.3), 1700-2050mL fluid (or per MD) *Adjusted body weight = 68kg Nutrition diagnosis: Increased protein needs r/t increased demand for wound healing AEB surgical hip wound with wound vac in place currently. Nutrition goals: -PO intake =/>75% -Meet fluid needs -Dry weight stable/appropriate weight loss. Ultimate goal is for weight to trend down ~1-2#/week until BMI nearer WNL -Wound healing documented Recommendations/Interventions: -Continue Regular diet. Will continue to honor food preferences. -Will add Maxwell BID for nutritionally aided wound healing. -RD will follow-up within 7 days.
--- NOTE | 2020-09-04 14:38 | NUR ---
CARE TEAM MEETING: PATIENT IS PROGRESSING WELL IN THERAPY. HER TENATIVE DISCHARGE DATE IS 09/10/20. WILL CONTINUE TO FOLLOW WITH PATIENT AND WILL ASSIST WITH HER NEEDS.
--- NOTE | 2020-09-04 19:30 | NUR ---
ASSESSMENT PER FLOW SHEET, VS OBTAINED PER STATION CASHIER, INC TO RIGHT HIP CDI WITH NO DRAINAGE NOTED, WOUND VAC IN PLACE, PT REPORTS FLATUS, BM TODAY AND VOIDING WITH NO DIFFICULTY, PT RATES INC PAIN 11/09, REQUESTS PAIN MED AT BEDTIME, PT INST ON AND ENC TO USE I.S., PT REPORTS USING IT THROUGHOUT THE DAY WHEN SHE IS "BORED", PT DENIES NEEDS AT THIS TIME
[2020-09-04 20:30] VITALS: BP 119/59
--- NOTE | 2020-09-04 20:53 | NUR ---
PT AWAKE, ADM 2100 MEDS AND PAIN MED, PER MD ORDERS, SEE EMAR, PT TO BR VIA WC WITH ASSISTANCE, VOIDED WITH NO DIFFICULTY, PT CHANGED UNDERWEAR AND INTO A GOWN, PT TO BED, DENIES FURTHER NEEDS AT THIS TIME
--- NOTE | 2020-09-04 22:34 | NUR ---
PT RESTING WITH EYES CLOSED, RESP QUIET, NO DISTRESS NOTED, LEFT UNDISTURBED AT THIS TIME
--- NOTE | 2020-09-05 | NUR ---
PT BRISTLE MACHINE OPERATOR LIGHT, PT UP TO BR VIA WALKER WITH ASSISTANCE, VOIDED WITH NO DIFFICULTY, PT BACK TO BED, DENIES FURTHER NEEDS OR PAIN AT THIS TIME
--- NOTE | 2020-09-05 02:16 | NUR ---
PT RESTING WITH EYES CLOSED, RESP QUIET, NO DISTRESS NOTED, LEFT UNDISTURBED AT THIS TIME
--- NOTE | 2020-09-05 04:13 | NUR ---
PT RESTING WITH EYES CLOSED, RESP QUIET, NO DISTRESS NOTED, LEFT UNDISTURBED AT THIS TIME
--- NOTE | 2020-09-05 05:17 | NUR ---
PT SHIFT SUPERVISOR LIGHT, PT UP TO BR VIA WALKER WITH ASSISTANCE, VOIDED WITH NO DIFFICULTY, PT BACK TO BED, DENIES FURTHER NEEDS OR PAIN, FRESH H20 SERVED, TRASH REMOVED
[2020-09-05 08:14] VITALS: BP 116/51
--- NOTE | 2020-09-05 08:35 | NUR ---
SHE IS ALERT. TOOK HER MEDICAITONS WITHOUT ANY PROBLEMS. SHE HAS A WOUND VAC TO THE RIGHT HIP. THE CALL LIGHT IS WITHIN REACH AND THE BED ALARM IS ON.
[2020-09-05 20:36] VITALS: BP 119/65
--- NOTE | 2020-09-06 01:19 | NUR ---
ASSISTED PT TO RESTROOM AND BACK TO BED. SHE DENIES PAIN OR NEEDS. WOUND VAC ON AND FUNCTIONING PROPERLY. HER BED ALARM IS ON AND CALL LIGHT IS WITHIN REACH.
[2020-09-06 07:23] LABS: CALC OSMOLALITY 264 mosm/kg (275-300); CALCIUM 9.1 mg/dL (8.5-10.1); CARBON DIOXIDE 27.2 mmol/L (21.0-32.0); CHLORIDE - SERUM 100 mmol/L (98-107); CREATININE - SERUM 0.7 mg/dL (0.6-1.3); GLUCOSE 96 mg/dL (74-106); POTASSIUM - SERUM 4.2 mmol/L (3.5-5.1); SODIUM 133 mmol/L (136-145); UREA NITROGEN 11 mg/dL (7-18); eGFR NON AFRICAN AMERICAN 86 mL/min (90-120)
[2020-09-06 07:52] LABS: BASOPHILS 0.2 % (0-2); EOSINOPHILS 0.9 % (0-7); HEMATOCRIT 30.1 % (36.0-48.0); IMMATURE GRANULOCYTES 0.8 % (0-5); LYMPHOCYTE ABS# 1.11 10x3/uL (1.18-3.74); LYMPHOCYTES 20.9 % (15-50); MCH 31.4 pg (26.0-34.0); MCHC 33.2 g/dL (31.0-37.0); MCV 94.7 fL (80.0-100.0); MEAN PLATELET VOLUME 10.5 fL (7.4-10.4); MONOCYTES 13.3 % (2-11); NEUTROPHILS 63.9 % (40-80); PLATELET COUNT 331 10x3/uL (130-400); RBC 3.18 10x6/uL (4.00-5.40); RDW 13.6 % (11.5-14.5); WBC 5.3 10x3/uL (4.8-10.8)
[2020-09-06 08:11] VITALS: BP 103/56
--- NOTE | 2020-09-06 14:19 | NUR ---
THIS NURSE CALLED AND TALKED TO DR IBANEZ IN REGARDS TO PATIENTS PREVENA VAC. DR IBAENZ STATED TO REMOVE PRVENA VAC AND APPLY A MEPILEX DRESSING. VAC REMOVED. WOUND CLEANED WITH WOUND TRANSPORT SPECIALIST AND MEPILEX DRESSING APPLIED
--- NOTE | 2020-09-06 20:00 | NUR ---
PATIENT RECEIVED SITTING UP IN WHEELCHAIR AT BEDSIDE. ASSESSMENT & VITAL SIGNS DONE. NO C/O PAIN OR DISTRESS AT THIS TIME. CALL LIGHT & BEDSIDE TABLE WITHIN REACH. WILL CONTINUE TO MONITOR.
[2020-09-06 21:20] VITALS: BP 104/58
--- NOTE | 2020-09-07 01:54 | NUR ---
PATIENT EYES CLOSED. RESPIRATIONS 18 & EVEN. BED LOW. CALL LIGHT & BEDSIDE TABLE WITHIN REACH. WILL CONTINUE TO MONITOR.
[2020-09-07 08:00] VITALS: BP 103/36
--- NOTE | 2020-09-07 08:00 | NUR ---
PT RESTING IN BED WITH EYES OPEN CALL LIGHT IN REACH NO PROBLEMS WILL MONITER
--- NOTE | 2020-09-07 18:03 | NUR ---
PT RESTING IN BED WITH EYES OPEN CALL LIGHT IN REACH WILL MONITER
[2020-09-07 19:00] VITALS: BP 124/60
--- NOTE | 2020-09-07 19:56 | NUR ---
PATIENT RECEIVED SITTING UP IN WHEELCHAIR AT BEDSIDE. ASSESSMENT & VITAL SIGNS DONE. NO C/O PAIN OR DISTRESS. CALL LIGHT & BEDSIDE TABLE WITHIN REACH. WILL CONTINUE TO MONITOR.
--- NOTE | 2020-09-08 02:30 | NUR ---
PATIENT USED CALL LIGHT FOR ASSIST. PATIENT STANDBY ASSIST USING ROLLING WALKER TO BATHROOM. VOID ONLY. RETURNED TO LOW BED. CALL LIGHT & BEDSIDE TABLE WITHIN REACH. WILL CONTINUE TO MONITOR.
--- NOTE | 2020-09-08 02:41 | NUR ---
I have reviewed this patient and I concur with the Shift Assessment completed by the Licensed Practical Nurse today this shift.
--- NOTE | 2020-09-08 07:36 | NUR ---
PT RESTING IN BED WITH EYES OPEN CALL LIGHT IN REACH WILL MONITER
[2020-09-08 08:00] VITALS: BP 125/55
--- NOTE | 2020-09-08 17:44 | NUR ---
PT RESTING IN BED WITH EYES OPEN CALL LIGHT IN REACH WILL MONITER
--- NOTE | 2020-09-08 19:46 | NUR ---
PATIENT RECEIVED SITTING UP WHEELCHAIR. ASSESSMENT & VITAL SIGNS DONE. NO C/O PAIN OR DISTRESS. CALL LIGHT WITHIN REACH. WILL CONTINUE TO MONITOR.
[2020-09-08 23:01] VITALS: BP 107/54
--- NOTE | 2020-09-09 03:27 | NUR ---
I have reviewed this patient and I concur with the Shift Assessment completed by the Licensed Practical Nurse today this shift.
--- NOTE | 2020-09-09 03:31 | NUR ---
PATIENT EYES CLOSED. RESPIRATIONS 18 & EVEN. BED LOW. CALL LIGHT & BEDSIDE TABLE WITHIN REACH. WILL CONTINUE TO MONITOR.
[2020-09-09 07:57] VITALS: BP 123/60
--- NOTE | 2020-09-09 08:00 | NUR ---
SHE IS USING THE WALKER TO GO INTO THE BATHROOM. PRN GIVEN FOR PAIN. THE RIGHT HIS HAS A DRESSING INTACT WITH SOME BRUISING. SHE IS GOING TO SET UP IN THE WHEELCHAIR FOR BREAKFAST. THE CALL LIGHT IS WITHIN REACH.
[2020-09-09 08:17] LABS: BASOPHILS 0.2 % (0-2); EOSINOPHILS 1.4 % (0-7); HEMATOCRIT 29.9 % (36.0-48.0); HEMOGLOBIN 9.9 g/dL (12-16); IMMATURE GRANULOCYTES 0.8 % (0-5); LYMPHOCYTE ABS# 0.87 10x3/uL (1.18-3.74); LYMPHOCYTES 17.4 % (15-50); MCHC 33.1 g/dL (31.0-37.0); MCV 93.7 fL (80.0-100.0); MEAN PLATELET VOLUME 10.4 fL (7.4-10.4); MONOCYTES 13.6 % (2-11); NEUTROPHIL ABS# 3.32 10x3/uL (1.56-6.13); NEUTROPHILS 66.6 % (40-80); PLATELET COUNT 313 10x3/uL (130-400); RBC 3.19 10x6/uL (4.00-5.40); RDW 13.5 % (11.5-14.5)
[2020-09-09] MEDS ORDERED: HYDROCODON-ACE1 EA10 PO (08:20)
[2020-09-09 08:30] LABS: CALC OSMOLALITY 266 mosm/kg (275-300); CALCIUM 8.9 mg/dL (8.5-10.1); CARBON DIOXIDE 26.6 mmol/L (21.0-32.0); CHLORIDE - SERUM 100 mmol/L (98-107); CREATININE - SERUM 0.7 mg/dL (0.6-1.3); GLUCOSE 93 mg/dL (74-106); POTASSIUM - SERUM 4.4 mmol/L (3.5-5.1); SODIUM 134 mmol/L (136-145); UREA NITROGEN 10 mg/dL (7-18); eGFR NON AFRICAN AMERICAN 86 mL/min (90-120)
--- NOTE | 2020-09-09 19:37 | NUR ---
PT IN WC WATCHING TV, NO IMMEDIATE NEEDS NOTED OR VERBALIZED, FLUIDS/CL WITHIN REACH, FALL PRECAUTIONS IN PLACE
[2020-09-09 19:58] VITALS: BP 105/49
[2020-09-10 07:34] VITALS: BP 108/66
--- NOTE | 2020-09-10 08:44 | NUR ---
SHE IS USING THE WALKER TO GO INTO THE BATHROOM. SHE IS SETTING UP IN THE WHEELCHAIR FOR BREAKFAST. THE RIGHT HIP HAS A CLEAN AND DRY DRESSING INTACT. THE CALL LIGHT IS WITHIN REACH. SHE IS DISCHARGING TODAY.
--- NOTE | 2020-09-10 09:49 | NUR ---
PATIENT DISCHARGING HOME TODAY WITH FAMILY. [facility] WILL PROVIDE THERAPY AT HOME. [facility] WILL DELIVER A SHOWER CHAIR , CHAIR CUSHION AND A BEDSIDE COMMODE. LEONILA SIGNED, IMM SERVED AND EXPLAINED, ONE GIVEN TO PATIENT AND ONE FILED IN CHART. DR. ZAMORA OFFICE WILL CALL PATIENT WITH AN APPOINTMENT. DR. IBANEZ 09/11/20 @ 11:20. DISCHARGE INSTUCTIONS FAXED TO PCP, HOME HEALTH AND REVIEWED WITH PATIENT.
--- NOTE | 2020-09-10 12:43 | NUR ---
TAKEN OUT TO THE FRONT DOORS VIA WHEELCHAIR. PAPERWORK GONE OVER WITH THE PATIENT. QUESTIONS ANSWERED, WRITTEN PRESCRIPTION FOR [place] WITH HER. HER SON IS WITH US.
== END 2020-09-10 12:44 | disposition home health service (06) | DRG 554 ==
LOC: D.REHAB 12:21
PROVIDERS: ADMIT Emergency Medicine; ATTEND Emergency Medicine
DX: M16.11 Unilateral primary osteoarthritis, right hip (principal); I48.20 Chronic atrial fibrillation, unspecified; E87.1 Hypo-osmolality and hyponatremia; D64.9 Anemia, unspecified; E87.8 Other disorders of electrolyte and fluid balance, not elsewhere classified; R26.2 Difficulty in walking, not elsewhere classified; I95.9 Hypotension, unspecified; E66.01 Morbid (severe) obesity due to excess calories; I10 Essential (primary) hypertension; R00.0 Tachycardia, unspecified